=== PATIENT | female | born 1970 ===

== ENCOUNTER 2017-04-15 15:42 | Emergency (ER) | payer OTHER ==
[2017-04-15 15:58] VITALS: BP 132/78
[2017-04-15] MEDS ORDERED: Dexamethasone IV* 4 MG/ML 1 ML (4 MG) IM ONE (16:34)
[2017-04-15] MEDS ORDERED: Ibuprofen ADULT LIQ* 600 MG/30 ML UDC PO ONE (16:35)
--- NOTE | 2017-04-15 17:18 | UC ---
Respiratory Complaint HPI - HPI Summary HPI Summary: 46 year old female with no significant pmhx here for throat pain for 3 days along with cough. She reports mild odynophagia but no f/c/n/v/d. - History of Current Complaint Chief Complaint: UCRespiratory Stated Complaint: THROAT PAIN Time Seen by Provider: 04/15/17 16:14 Hx Obtained From: Patient Hx Last Menstrual Period: 4 wks ago Onset/Duration: Sudden Onset Timing: Constant Severity Currently: Mild Associated Signs And Symptoms: Positive: Negative - Allergies/Home Medications Allergies/Adverse Reactions: Allergies Allergy/AdvReac Type Severity Reaction Status Date / Time No Known Allergies Allergy Verified 04/15/17 15:58 PMH/Surg Hx/FS Hx/Imm Hx - Surgical History Surgical History: Yes Surgery Procedure, Year, and Place: C section 1994 - Social History Alcohol Use: Rare Substance Use Type: None Smoking Status (MU): Never Smoked Tobacco - Immunization History Most Recent Tetanus Shot: Unknown Review of Systems Constitutional: Negative Skin: Negative Eyes: Negative ENT: Sore Throat Respiratory: Cough Cardiovascular: Negative Gastrointestinal: Negative Genitourinary: Negative Motor: Negative Neurovascular: Negative Musculoskeletal: Negative Neurological: Negative Psychological: Negative All Other Systems Reviewed And Are Negative: Yes Physical Exam Triage Information Reviewed: Yes Vital Signs: Initial Vital Signs Temp 36.4 C 04/15/17 15:56 Pulse 76 04/15/17 15:56 Resp 18 04/15/17 15:56 BP 132/78 04/15/17 15:56 Pulse Ox 100 04/15/17 15:56 Eye Exam: Normal ENT Exam: Normal ENT: Positive: Normal ENT inspection, Pharyngeal erythema, Nasal congestion, Nasal drainage, TMs normal, Uvula midline. Negative: Tonsillar swelling, Tonsillar exudate, Trismus, Muffled voice, Hoarse voice, Sinus tenderness Dental Exam: Normal Neck exam: Normal Neck: Positive: 1 Respiratory Exam: Normal Cardiovascular Exam: Normal Abdominal Exam: Normal Musculoskeletal Exam: Normal Neurological Exam: Normal Psychological Exam: Normal Skin Exam: Normal Diagnostic Evaluation - Laboratory O2 Sat by Pulse Oximetry: 100 Respiratory Course/Dx - Course Course Of Treatment: Sore throat. Symptomatic treatment - Differential Dx/Diagnosis Differential Diagnosis/HQI/PQRI: Laryngitis, Lower Resp Infection Provider Diagnoses: Pharyngitis Discharge - Discharge Plan Condition: Good Disposition: HOME Prescriptions: Magic M W2 Esteban/Maal/Nyst/Lido* 5 ml SWISH SWAL QID PRN #1 bottle PRN Reason: Pain Patient Education Materials: Pharyngitis (ED) Forms: *Work Release Referrals: Brianne Rahman MD [Primary Care Provider] -
== END 2017-04-15 17:14 | disposition home or self-care (01) ==
LOC: UCEAST 15:42
DX: J02.9 Acute pharyngitis, unspecified (principal)
CPT/HCPCS: 87651; 96372; 99212; A9270-GY; G0463; J1100

== ENCOUNTER 2017-10-11 15:20 | Emergency (ER) | payer OTHER ==
[2017-10-11 16:14] VITALS: BP 137/89
--- NOTE | 2017-10-11 16:37 | UC ---
Lower Extremity/Ankle HPI - HPI Summary HPI Summary: Patient presents complaining of right foot pain. Patient states yesterday she twisted and fell. Patient states pain is progressive in the right lateral ankle. Pain worse with movement of her feet. The patient states pain worse with ambulation. Patient has taken Motrin and Tylenol with short-term relief. Mild edema, ecchymosis. No knee or hip pain. No other injuries related to the fall. She states she is walking with a limp. No previous injury to the same Medications medications reviewed this visit. - History of Current Complaint Chief Complaint: UCLowerExtremity Stated Complaint: FELL RIGHT ANKLE INJURY Hx Obtained From: Patient Hx Last Menstrual Period: 09/18/2017 Onset/Duration: Sudden Onset Severity Initially: Mild Severity Currently: Mild Pain Intensity: 2 Pain Scale Used: 0-10 Numeric - Allergies/Home Medications Allergies/Adverse Reactions: Allergies Allergy/AdvReac Type Severity Reaction Status Date / Time No Known Allergies Allergy Verified 04/15/17 15:58 Home Medications: Home Medications Ibuprofen [Advil] 200 mg PO 10/11/17 [History] PMH/Surg Hx/FS Hx/Imm Hx Previously Healthy: Yes - Surgical History Surgical History: Yes Surgery Procedure, Year, and Place: C section 1994 - Family History Known Family History: Positive: Hypertension - Social History Occupation: Employed Full-time Lives: With Family Alcohol Use: Weekly Substance Use Type: None Smoking Status (MU): Never Smoked Tobacco - Immunization History Most Recent Tetanus Shot: Unknown Review of Systems Constitutional: Negative Neurovascular: Negative Musculoskeletal: Other: - ankle pain Neurological: Negative All Other Systems Reviewed And Are Negative: Yes Physical Exam - Summary Physical Exam Summary: Vital Signs Reviewed: Yes A+Ox3, no distress Eyes: Conjunctiva Clear, MARLENE. EOM intact and full ENT: Hearing grossly normal TM x 2 clear, mmoist, uvula midline, no exudate, no erythema Neck: Positive: Supple Respiratory: Positive: No respiratory distress, No accessory muscle use + CTA throughout no w/r Cardiovascular: RRR nl s1, s2 no m/r CBT <2 sec Musculoskeletal Exam: +SLE b/l + flex/ext knee + pain with extension and inversion right ankle + TTP anterior, inferior lateral malleolus with pain extending to base of 5th MT, No crepitus no pain across tarsals Neurological: Positive: Alert, + grosssensation throughout foot Psychological: Positive: Normal Response To Family Skin: Positive: no rash, no ecchymosis mild edema lateral malleolus Triage Information Reviewed: Yes Vital Signs: Initial Vital Signs Temp 98.5 F 10/11/17 16:10 Pulse 58 10/11/17 16:10 Resp 16 10/11/17 16:10 BP 137/89 10/11/17 16:10 Pulse Ox 99 10/11/17 16:10 Diagnostics - Radiology No standard instances Radiology Interpretation Completed By: Radiologist - Patient Name: HERVE ROWELL Medical Record#: [id number] Ordering Physician: Maria Orozco MD Acct.#: [id number] : 1970 Age: 46 Sex: F Location: [facility] Exam Date: 10/11/171618 ADM Status: REG ER Order Information: ANKLE RIGHT 3+ VWS Accession Number: [id number] CPT: 88269 HISTORY: Right ankle inversion injury COMPARISONS : None VIEWS: 3, Frontal, lateral, and oblique views of the right ankle FINDINGS: BONE DENSITY: Normal. BONES: There is no displaced fracture. JOINTS: There is no arthropathy. ALIGNMENT: There is no dislocation. SOFT TISSUES: There is mild soft tissue swelling. OTHER FINDINGS: None. IMPRESSION : NO ACUTE OSSEOUS INJURY. IF SYMPTOMS PERSIST, RECOMMEND REPEAT IMAGING. ____ <Electronically signed by Cristopher King MD in [place]> 10/11/171636 Dictated By: Cristopher King MD Dictated Date/Time: 10/11/171636 Transcribed Date/Time: 10/11/171636 Copy to: CC:Maria Orozco MD; Brianne Rahman MD Imaging - [facility] - [place] [facility] [address] [place] [address] ph ([phone]) ph ([phone]) ph ([phone]) 1 of 1 Lower Extremity Course/Dx - Course Course Of Treatment: Pt with pain ankle s/p twisting injury. pain lateral malleolus. imaging neg fx. meghana wrap, airsplint. ice. elevate crutches. specialty referral. motrin/apap. declined work note for crutches - Differential Dx/Diagnosis Provider Diagnoses: ankle sprain Discharge - Sign-Out/Discharge Documenting (check all that apply): Discharge/Admit/Transfer - Discharge Plan Condition: Stable Disposition: HOME Patient Education Materials: Ankle Sprain (ED) Referrals: Saúl Garcia MD [Medical Doctor] - Brianne Rahman MD [Primary Care Provider] - Additional Instructions: -wear meghana wrap for comfort and support -apply ice (20 min at a time) every 2-3 hours for the next 2 days -use crutches until you can walk normally without a limp -Elevate your leg - this will help with swelling and pain - Alternate ibuprofen (advil, Motrin) 600mg and tylenol every 3 hours for pain. Take with food. Do NOT take for more than 4-5 days -Contact Dr. Sung to arrange a follow-up appointment next week. Contact your doctor or return with questions or concerns - Billing Disposition and Condition Condition: STABLE Disposition: HOME
--- NOTE | 2017-10-11 16:41 | RAD ---
HISTORY: Right ankle inversion injury COMPARISONS: None VIEWS: 3, Frontal, lateral, and oblique views of the right ankle FINDINGS: BONE DENSITY: Normal. BONES: There is no displaced fracture. JOINTS: There is no arthropathy. ALIGNMENT: There is no dislocation. SOFT TISSUES: There is mild soft tissue swelling. OTHER FINDINGS: None. IMPRESSION: NO ACUTE OSSEOUS INJURY. IF SYMPTOMS PERSIST, RECOMMEND REPEAT IMAGING.
== END 2017-10-11 17:27 | disposition home or self-care (01) ==
LOC: UCEAST 15:20
DX: S93.401A Sprain of unspecified ligament of right ankle, initial encounter (principal); X50.1XXA Overexertion from prolonged static or awkward postures, initial encounter; Y93.9 Activity, unspecified; Y92.9 Unspecified place or not applicable
CPT/HCPCS: 99213; G0463